=== PATIENT | female | born 1950 | race Caucasian/White ===

== ENCOUNTER 2019-08-25 15:01 | Outpatient (CLI) | payer MEDICARE, OTHER, SELFPAY ==
--- NOTE | ~2019-08-25 | CT_ITS ---
EXAMINATION: CT chest wo con EXAM DATE: 08/25/2019 15:24 INDICATION: Abnormal lung findings. TECHNIQUE: Spiral CT of the chest without contrast. Axial, coronal and sagittal images were reviewe d. Coronal maximum intensity pixel images of chest reviewed. The dose-length product (DLP) for this examination was 186.03 mGy-cm. The exposure was tailored according to patient size (auto mA exposur e control), and iterative reconstruction (ASIR) was used as additional dose reduction technique. Comp arison is made to prior examination from 02/06/2019. FINDINGS: There is moderate emphysema and hyperinflation. There is left infrahilar nodule with spicu lations measuring 1.7 cm, consistent with primary lung cancer. The left lower lobe posterior and post erior medial basilar segments appear occluded. Location is not amenable to percutaneous biopsy; recom mend pulmonary consult. Stable surgical changes from partial right pneumonectomy. There is patulous upper esophagus. There ar e no pleural or pericardial effusions. Tracheobronchial tree is patent. There is no mediastinal, hilar or axillary lymphadenopathy. There is no pneumothorax. Heart normal in size. There are li amirah coronary arterial stent or stents. Correlate with prior cardiac history. There are cholecystect maria e clips. There is thoracic spondylosis without osteoblastic or osteolytic lesions identified. IMPRESSION: 1. Recommend pulmonary consult for left infrahilar spiculated nodule likely primary lung cancer. 2. Moderate emphysema and hyperinflation. 3. Surgical, chronic changes. I left a message for Dr. Litzy Handy MD on 08/26/2019 09:11 DOUBLE BACKER. I provided my direct numbe r, requested call back to discuss findings in this case. Reviewed, dictated and finalized at location [facility]. LE BACKER IMPRESSION: 1. Recommend pulmonary consult for left infrahilar spiculated nodule likely pr imary lung cancer. 2. Moderate emphysema and hyperinflation. 3. Surgical, chronic changes. I left a message for Dr. Litzy Handy MD on 08/26/2019 09:11 DOUBLE BACKER. I pr ovided my direct number, requested call back to discuss findings in this case.
== END 2019-08-25 15:02 | disposition home or self-care (01) ==
LOC: ANHIMG 15:02
PROVIDERS: PCP Family Medicine; Visit Provider Family Medicine
DX: R91.8 Other nonspecific abnormal finding of lung field (principal); J43.9 Emphysema, unspecified
CPT/HCPCS: 71250

== ENCOUNTER 2019-09-10 11:49 | Outpatient (CLI) | payer MEDICARE, OTHER, SELFPAY ==
--- NOTE | ~2019-09-10 | PE_ITS ---
EXAMINATION: PET skull to mid thigh DATE: 09/10/2019 15:23 INDICATION: Solitary pulmonary nodule. TECHNIQUE: Blood glucose level was 98 mg/dL. 10.116 mCi of 18-fluorodeoxyglucose (18-FDG) was adminis tered i.v. Low dose computed tomography (CT) images were acquired from the base of the brain to the p roximal thighs for attenuation correction and anatomic localization. Automated exposure control was e mployed. Dose-length product (DLP) was 516 mGy-cm. Positron emission tomography (PET) images were acq uired in the same distribution. COMPARISON: Chest CT 08/25/2019 FINDINGS: Head/neck: There is increased activity in the oral cavity, oropharynx, glottis, and left parotid glan d without CT correlate, likely physiologic. There are no pathologically enlarged lymph nodes. Chest: There are changes of right lung upper lobectomy. There is moderate emphysema. There is a 2.0 c m nodule in left lower lobe abutting the hilum with maximum SUV of 9.5. There is a 1.6 x 1.5 cm left hilar lymph node with maximum SUV of 7.7. No pleural effusion. The heart size is normal. There are co ronary artery calcifications. No pericardial effusion. Abdomen/pelvis/proximal thighs: The liver and spleen are normal. There are changes of cholecystectomy . The pancreas, adrenal glands, and kidneys are normal. There is a filter in the infrarenal inferior vena cava. There is a stent in the left common iliac vein and inferior vena cava. There are no dilate d loops of bowel. There are no pathologically enlarged lymph nodes. There is no free intraperitoneal fluid. There is a stent in left superficial femoral artery. There is no osseous malignancy. IMPRESSION: 1. 2.0 cm nodule in left lung lower lobe with increased activity, consistent with primary bronchogeni c carcinoma. 2. Left hilar lymphadenopathy with increased activity, consistent with metastatic disease. Reviewed, dictated and finalized at location [facility]. IMPRESSION: 1. 2.0 cm nodule in left lung lower lobe with increased activity, consistent wi th primary bronchogenic carcinoma. 2. Left hilar lymphadenopathy with increased activity, consistent with metastat ic disease.
[2019-09-10 12:34] LABS: Glucose Point of Care 98 (65-105)
== END 2019-09-10 11:50 | disposition home or self-care (01) ==
LOC: ANHIMG 12:03
PROVIDERS: PCP Family Medicine
DX: R91.1 Solitary pulmonary nodule (principal); R59.0 Localized enlarged lymph nodes
CPT/HCPCS: 78815; A9552

== ENCOUNTER 2020-12-15 10:55 | Outpatient (CLI) | payer MEDICARE, OTHER, SELFPAY ==
--- NOTE | ~2020-12-15 | XR_ITS ---
XR_[id number]_CR DATE: 12/15/2020 11:18 INDICATION: Flipped backwards over scooter 6 days ago. Neck pain. TECHNIQUE: AP, odontoid and lateral views COMPARISON: None FINDINGS: Normal alignment of the cervical spine. The odontoid process appears intact. No fracture or dislocation or locked facet or prevertebral soft tissue swelling. There is mild degenerative disc disease at C5-6 and C6-C7 primarily. Postoperative changes of the right lung and right and to a lesser extent left apical capping. IMPRESSION: Mild degenerative disc disease of the lower cervical spine Reviewed, dictated and finalized at [facility]. Reviewed, dictated and finalized at location [facility].
== END 2020-12-15 10:56 | disposition home or self-care (01) ==
LOC: ANHIMG 11:00
PROVIDERS: PCP Family Medicine; Visit Provider Nurse Practitioner Family
DX: M47.812 Spondylosis without myelopathy or radiculopathy, cervical region (principal)
CPT/HCPCS: 72040